=== PATIENT | male | born 1970 | race Caucasian/White ===

== ENCOUNTER 2017-09-15 12:19 | Emergency (ER) | payer SELFPAY ==
--- NOTE | 2017-09-15 12:22 | EDM.PDOC ---
ED HPI GENERAL MEDICAL PROBLEM - General Stated Complaint: HBP Time Seen by Provider: 09/15/17 12:35 Source of Information: Reports: Patient History Limitations: Reports: No Limitations - History of Present Illness INITIAL COMMENTS - FREE TEXT/NARRATIVE: History of present illness: []Patient was at a job physical and found to have high blood pressure and was told to come to the emergency room immediately. Patient has no symptoms of chest pain, shortness of breath, dizziness, blurry vision, back pain or headache. Patient had a heart attack in 2009 and had a stent placed. He is noncompliant with medication due to lack of insurance. Patient does not take a baby aspirin daily. He was supposed to also be on cholesterol medicines, metoprolol and Effient. Review of systems: As per history of present illness and below otherwise all systems reviewed and negative. Past medical history: As per history of present illness and as reviewed below otherwise noncontributory. Surgical history: As per history of present illness and as reviewed below otherwise noncontributory. Social history: No reported history of drug or alcohol abuse. Family history: As per history of present illness and as reviewed below otherwise noncontributory. Physical exam: General: Well developed, well nourished in NAD HEENT: Atraumatic, normocephalic, pupils reactive, negative for conjunctival pallor or scleral icterus, mucous membranes moist, throat clear, neck supple, nontender, trachea midline. Lungs: Clear to auscultation, breath sounds equal bilaterally, chest nontender. Heart: S1S2, regular, negative for clicks, rubs, or JVD. Abdomen: Soft, nondistended, nontender. Negative for masses or hepatosplenomegaly. Negative for costovertebral tenderness. Pelvis: Stable nontender. Genitourinary: Deferred. Rectal: Deferred. Extremities: Atraumatic, negative for cords or calf pain. Neurovascular unremarkable. Neuro: Awake, alert, oriented. Cranial nerves II through XII unremarkable. Cerebellum unremarkable. Motor and sensory unremarkable throughout. Exam nonfocal. Diagnostics: []9. Patient asymptomatic. Therapeutics: []Metoprolol clonidine given in the ED Impression: []Uncontrolled hypertension Plan: []Metoprolol prescription called in, aspirin daily, Definitive disposition and diagnosis as appropriate pending reevaluation and review of above. - Related Data Allergies Allergy/AdvReac Type Severity Reaction Status Date / Time No Known Allergies Allergy Verified 09/15/17 12:30 Home Meds: Home Meds Metoprolol Tartrate [Lopressor] 25 mg PO Q12HR #30 tab 09/15/17 [Rx] ED ROS GENERAL - Review of Systems Review Of Systems: See Below (History of present illness:) ED EXAM, GENERAL - Physical Exam Exam: See Below (History of present illness:) Course - Vital Signs Last Recorded V/S: Last Vital Signs Temp 98.0 F 09/15/17 12:38 Pulse 78 09/15/17 14:00 Resp 16 09/15/17 12:38 BP 173/119 H 09/15/17 14:16 Pulse Ox 97 09/15/17 12:38 - Orders/Labs/Meds Meds: Medications Discontinued Medications Generic Name Dose Route Start Last Admin Trade Name Velq PRN Reason Stop Dose Admin Clonidine HCl 0.2 mg 09/15/17 14:08 09/15/17 14:16 Catapres PO 09/15/17 14:09 0.2 mg ONETIME ONE Administration Metoprolol Tartrate 25 mg 09/15/17 12:45 09/15/17 12:52 Lopressor PO 09/15/17 12:46 25 mg ONETIME ONE Administration Metoprolol Tartrate 25 mg 09/15/17 13:24 09/15/17 13:30 Lopressor PO 09/15/17 13:25 25 mg ONETIME ONE Administration Departure - Departure Time of Disposition: 15:03 Disposition: Home, Self-Care 01 Condition: Good Clinical Impression: Uncontrolled hypertension - Discharge Information Prescriptions: Metoprolol Tartrate [Lopressor] 25 mg PO Q12HR #30 tab Referrals: PCP,None [Primary Care Provider] - Additional Instructions: The following information is given to patients seen in the emergency department who are being discharged to home. This information is to outline your options for follow-up care. We provide all patients seen in our emergency department with a follow-up referral. The need for follow-up, as well as the timing and circumstances, are variable depending upon the specifics of your emergency department visit. If you don't have a primary care physician on staff, we will provide you with a referral. We always advise you to contact your personal physician following an emergency department visit to inform them of the circumstance of the visit and for follow-up with them and/or the need for any referrals to a consulting specialist. The emergency department will also refer you to a specialist when appropriate. This referral assures that you have the opportunity for follow-up care with a specialist. All of these measure are taken in an effort to provide you with optimal care, which includes your follow-up. Under all circumstances we always encourage you to contact your private physician who remains a resource for coordinating your care. When calling for follow-up care, please make the office aware that this follow-up is from your recent emergency room visit. If for any reason you are refused follow-up, please contact the [facility] Emergency Department at and asked to speak to the emergency department charge nurse. Take metoprolol as directed take one baby aspirin daily follow-up with primary care next available appointment. [facility] [address] [place] [id number]
[2017-09-15] MEDS ORDERED: Metoprolol Tartrate 25 MG Tab PO ONE ×2 (12:45→13:24)
[2017-09-15] MEDS ORDERED: cloNIDine 0.1 MG Tab PO ONE (14:08)
== END 2017-09-15 15:42 | disposition home or self-care (01) ==
LOC: MW.ED 12:19
DX: I10 Essential (primary) hypertension (principal)
CPT/HCPCS: 99283; A9270; 99282

== ENCOUNTER 2017-11-17 03:46 | Emergency (ER) | payer SELFPAY ==
[2017-11-17] MEDS ORDERED: Ketorolac 60 MG/2 ML SDV IM ONE (03:55)
--- NOTE | 2017-11-17 03:56 | EDM.PDOC ---
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 Past medical history: As per history of present illness and as reviewed below otherwise noncontributory. Surgical history: As per history of present illness and as reviewed below otherwise noncontributory. Social history: No reported history of drug or alcohol abuse. Family history: As per history of present illness and as reviewed below otherwise noncontributory. Physical exam: HEENT: Atraumatic, normocephalic, pupils reactive, negative for conjunctival pallor or scleral icterus, mucous membranes moist, throat clear, neck supple, nontender, trachea midline. Lungs: Clear to auscultation, breath sounds equal bilaterally, chest nontender. Heart: S1S2, regular, negative for clicks, rubs, or JVD. Abdomen: Soft, nondistended, nontender. Negative for masses or hepatosplenomegaly. Negative for costovertebral tenderness. Pelvis: Stable nontender. Genitourinary: Deferred. Rectal: Deferred. Extremities: Atraumatic, negative for cords or calf pain. Neurovascular unremarkable. Neuro: Awake, alert, oriented. Cranial nerves II through XII unremarkable. Cerebellum unremarkable. Motor and sensory unremarkable throughout. Exam nonfocal. Musculoskeletal as per history of present illness otherwise unremarkable Diagnostics: [Lumbar spine ] Therapeutics: [Toradol 60 IM 1 L bolus normal saline Morphine 2 mg IV Valium 5 mg IV ] Cataflam Flexeril Ice Follow-up primary care Patient has been out of metoprolol for a couple of weeks I did provide a prescription for his regular dosing for 30 days Impression: [Low back pain]/paraspinous muscle spasm -pain improved 2 out of 10 Patient has newspaper delivery driver post medication Definitive disposition and diagnosis as appropriate pending reevaluation and review of above. back Pain Score (Numeric/FACES): 9 - Related Data Allergies Allergy/AdvReac Type Severity Reaction Status Date / Time Penicillins Allergy Hives Verified 11/17/17 03:58 Home Meds: Home Meds Metoprolol Tartrate [Lopressor] 25 mg PO Q12HR #30 tab 09/15/17 [Rx] Past Medical History Cardiovascular History: Reports: Hypertension, [place] - Past Surgical History Cardiovascular Surgical History: Reports: Coronary Artery Stent Social & Family History - Family History Family Medical History: Noncontributory - Caffeine Use Caffeine Use: Reports: Coffee ED ROS GENERAL - Review of Systems Review Of Systems: See Below ED EXAM, GENERAL - Physical Exam Exam: See Below Course - Vital Signs Last Recorded V/S: Last Vital Signs Temp 96.6 F 11/17/17 03:56 Pulse 74 11/17/17 05:06 Resp 18 11/17/17 05:06 BP 163/116 H 11/17/17 05:06 Pulse Ox 97 11/17/17 05:06 - Orders/Labs/Meds Orders: Active Orders 24 hr Category Date Time Status Lumbar Spine 2 or 3V [CR] Stat Exams 11/17/17 03:55 Taken Meds: Medications Discontinued Medications Generic Name Dose Route Start Last Admin Trade Name Freq PRN Reason Stop Dose Admin Diazepam 5 mg 11/17/17 05:01 11/17/17 05:07 Valium IV 11/17/17 05:02 5 mg ONETIME ONE Administration Sodium Chloride 1,000 mls @ 999 mls/hr 11/17/17 04:08 11/17/17 04:20 Normal Saline IV 11/17/17 05:08 999 mls/hr STAT ONE Administration Ketorolac Tromethamine 60 mg 11/17/17 03:55 11/17/17 04:00 Toradol IM 11/17/17 03:56 60 mg ONETIME ONE Administration Morphine Sulfate 2 mg 11/17/17 04:23 11/17/17 04:27 Morphine IVPUSH 11/17/17 04:24 2 mg ONETIME ONE Administration Departure - Departure Time of Disposition: 05:27 Disposition: Home, Self-Care 01 Condition: Good Clinical Impression: Lumbar paraspinal muscle spasm - Discharge Information Referrals: PCP,None [Primary Care Provider] - Forms: ED Department Discharge Additional Instructions: Medication as prescribed Ice 20 minute intervals 3 times daily as needed Return if symptoms persist or worsen Follow-up with primary care in 2 weeks sooner as needed [facility] [address] [place] [id number] The following information is given to patients seen in the emergency department who are being discharged to home. This information is to outline your options for follow-up care. We provide all patients seen in our emergency department with a follow-up referral. The need for follow-up, as well as the timing and circumstances, are variable depending upon the specifics of your emergency department visit. If you don't have a primary care physician on staff, we will provide you with a referral. We always advise you to contact your personal physician following an emergency department visit to inform them of the circumstance of the visit and for follow-up with them and/or the need for any referrals to a consulting specialist. The emergency department will also refer you to a specialist when appropriate. This referral assures that you have the opportunity for follow-up care with a specialist. All of these measure are taken in an effort to provide you with optimal care, which includes your follow-up. Under all circumstances we always encourage you to contact your private physician who remains a resource for coordinating your care. When calling for follow-up care, please make the office aware that this follow-up is from your recent emergency room visit. If for any reason you are refused follow-up, please contact the [facility] emergency department at and asked to speak to the emergency department charge nurse. - My Orders Last 24 Hours: My Active Orders 11/17/17 03:55 Lumbar Spine 2 or 3V [CR] Stat - Assessment/Plan Last 24 Hours: My Active Orders 11/17/17 03:55 Lumbar Spine 2 or 3V [CR] Stat
[2017-11-17] MEDS ORDERED: Sodium Chloride 0.9% 1,000 ML IV ONE (04:08)
[2017-11-17] MEDS ORDERED: Morphine 2 MG/ML Syringe IVPUSH ONE (04:23)
[2017-11-17] MEDS ORDERED: Diazepam 5 MG/ML 10 ML Vial MDV IV ONE (05:01)
[2017-11-17] MEDS ORDERED: Metoprolol Tartrate 5 MG/5 ML SDV IVPUSH STA (05:28)
--- NOTE | 2017-11-17 13:38 | CR ---
EXAM DATE: 11/17/17 PATIENT'S AGE: 47 Patient: MARCIO ROONEY Facility: [place], [place] Site . Site : 1970 Study: XRay Spine Lumbar [id number] 4:18:56 AM Ordering Physician: Doctor Dominguez Final Report: INDICATION: Low back pain TECHNIQUE: Lumbar spine 3 view. COMPARISON: None available FINDINGS: A mildly exaggerated lumbar lordosis. Preserved vertebral body heights and disc spaces. Anatomically aligned facets. Apparent mild hypertrophic degenerative changes in the lower lumbar facets. Small anterior osteophytes at few levels. IMPRESSION: Mild degenerative changes. Dictated by Gutierrez Camacho MD @ 11/17/2017 4:51:32 AM Dictated by: Gutierrez Camacho MD @ 11/17/2017 04:51:42 (Electronic Signature) Report Signed by Proxy. [email or web address]
== END 2017-11-17 06:20 | disposition home or self-care (01) ==
LOC: MW.ED 03:46
DX: M62.830 Muscle spasm of back (principal); I10 Essential (primary) hypertension; I25.2 Old myocardial infarction; Z88.0 Allergy status to penicillin; Z95.5 Presence of coronary angioplasty implant and graft
CPT/HCPCS: 72100; 96361; 96372; 96374; 96375; 99283; A9270; J1885; J2270; J7040

== ENCOUNTER 2018-02-21 13:31 | Emergency (ER) | payer SELFPAY ==
[2018-02-21] MEDS ORDERED: Sodium Chloride 0.9% 10 ML Syringe FLUSH PRN (13:40)
[2018-02-21] MEDS ORDERED: Aspirin 81 MG Tab.Chew PO ONE (13:40)
[2018-02-21] MEDS ORDERED: Sodium Chloride 0.9% 2.5 ML Syringe FLUSH PRN (13:40)
--- NOTE | 2018-02-21 14:19 | EDM.PDOC ---
ED HPI GENERAL MEDICAL PROBLEM - General Chief Complaint: Chest Pain Stated Complaint: INFECTION Time Seen by Provider: 02/21/18 13:32 Source of Information: Reports: Patient History Limitations: Reports: No Limitations - History of Present Illness INITIAL COMMENTS - FREE TEXT/NARRATIVE: History of present illness: []Patient states that he has had lower chest and upper abdominal pain for 3 days straight. He has been coughing and sleeping excessively for the last 3 days. He states he's been having sweats and his cough is nonproductive. Patient denies any vomiting, diarrhea, abdominal pain or back pain. Review of systems: As per history of present illness and below otherwise all systems reviewed and negative. Past medical history: As per history of present illness and as reviewed below otherwise noncontributory. Surgical history: As per history of present illness and as reviewed below otherwise noncontributory. Social history: No reported history of drug or alcohol abuse. Family history: As per history of present illness and as reviewed below otherwise noncontributory. Physical exam: General: Well developed, well nourished in NAD HEENT: Atraumatic, normocephalic, pupils reactive, negative for conjunctival pallor or scleral icterus, mucous membranes moist, throat clear, neck supple, nontender, trachea midline. Lungs: Clear to auscultation, breath sounds equal bilaterally, chest nontender. No rhonchi or wheezing Heart: S1S2, regular, negative for clicks, rubs, or JVD. Abdomen: Soft, nondistended, nontender. Negative for masses or hepatosplenomegaly. Negative for costovertebral tenderness. Pelvis: Stable nontender. Genitourinary: Deferred. Rectal: Deferred. Extremities: Atraumatic, negative for cords or calf pain. Neurovascular unremarkable. Neuro: Awake, alert, oriented. Cranial nerves II through XII unremarkable. Cerebellum unremarkable. Motor and sensory unremarkable throughout. Exam nonfocal. Skin:warm and dry Diagnostics: EKG, CBC, chemistry, troponin, chest x-ray, blood cultures Therapeutics: IV fluids, aspirin, nitroglycerin ED Course: Unremarkable Impression: Chest pain, bronchitis Prescriptions: Z-Kavon Plan: Follow-up with PMD Definitive disposition and diagnosis as appropriate pending reevaluation and review of above. chest Pain Score (Numeric/FACES): 5 - Related Data Allergies Allergy/AdvReac Type Severity Reaction Status Date / Time Penicillins Allergy Hives Verified 02/21/18 13:56 Home Meds: Home Meds Metoprolol Tartrate [Lopressor] 25 mg PO Q12HR #30 tab 09/15/17 [Rx] Azithromycin [Zithromax] 250 mg PO DAILY #6 tab 02/21/18 [Rx] Past Medical History HEENT History: Reports: None Cardiovascular History: Reports: Hypertension, [place] Respiratory History: Reports: None Gastrointestinal History: Reports: None Genitourinary History: Reports: None Musculoskeletal History: Reports: Back Pain, Chronic Neurological History: Reports: None Psychiatric History: Reports: None Endocrine/Metabolic History: Reports: None Hematologic History: Reports: None Immunologic History: Reports: None Oncologic (Cancer) History: Reports: None Dermatologic History: Reports: None - Infectious Disease History Infectious Disease History: Reports: Chicken Pox - Past Surgical History Head Surgeries/Procedures: Reports: None HEENT Surgical History: Reports: None Cardiovascular Surgical History: Reports: Coronary Artery Stent Respiratory Surgical History: Reports: None GI Surgical History: Reports: None Male Surgical History: Reports: None Endocrine Surgical History: Reports: None Neurological Surgical History: Reports: None Musculoskeletal Surgical History: Reports: None Oncologic Surgical History: Reports: None Dermatological Surgical History: Reports: None Social & Family History - Family History Family Medical History: Noncontributory - Tobacco Use Smoking Status *Q: Current Every Day Smoker Years of Tobacco use: 15 Packs/Tins Daily: 0.5 - Caffeine Use Caffeine Use: Reports: Coffee - Recreational Drug Use Recreational Drug Use: No ED ROS GENERAL - Review of Systems Review Of Systems: ROS reveals no pertinent complaints other than HPI. ED EXAM, GENERAL - Physical Exam Exam: See Below (See history of present illness) Course - Vital Signs Last Recorded V/S: Last Vital Signs Temp 95.9 F 02/21/18 13:35 Pulse 67 02/21/18 15:35 Resp 10 L 02/21/18 15:35 BP 160/95 H 02/21/18 15:35 Pulse Ox 96 02/21/18 15:35 - Orders/Labs/Meds Orders: Active Orders 24 hr Category Date Time Status EKG Documentation Completion [RC] STAT Care 02/21/18 13:40 Active CULTURE BLOOD [BC] Stat Lab 02/21/18 13:55 Ordered CULTURE BLOOD [BC] Stat Lab 02/21/18 14:08 Results Sodium Chloride 0.9% [Saline Flush] Med 02/21/18 13:40 Active 10 ml FLUSH ASDIRECTED PRN Sodium Chloride 0.9% [Saline Flush] Med 02/21/18 13:40 Active 2.5 ml FLUSH ASDIRECTED PRN Blood Culture x2 Reflex Set [OM.PC] Stat Oth 02/21/18 13:55 Ordered Saline Lock Insert [OM.PC] Stat Oth 02/21/18 13:40 Ordered Medication Orders Sodium Chloride (Saline Flush) 10 ml FLUSH ASDIRECTED PRN PRN Reason: Keep Vein Open Last Admin: 02/21/18 14:16 Dose: 10 ml Sodium Chloride (Saline Flush) 2.5 ml FLUSH ASDIRECTED PRN PRN Reason: Keep Vein Open Last Admin: 02/21/18 14:17 Dose: 2.5 ml Labs: Laboratory Tests 02/21/18 02/21/18 Range/Units 14:08 14:08 WBC 5.91 (4.0-11.0) K/uL RBC 4.58 (4.50-5.90) M/uL Hgb 14.9 (13.0-17.0) g/dL Hct 42.8 (38.0-50.0) % MCV 93.4 (80.0-98.0) fL MCH 32.5 H (27.0-32.0) pg MCHC 34.8 (31.0-37.0) g/dL RDW Std Deviation 46.0 (28.0-62.0) fl RDW Coeff of Asad 13 (11.0-15.0) % Plt Count 209 (150-400) K/uL MPV 10.00 (7.40-12.00) fL Neut % (Auto) 65.1 (48.0-80.0) % Lymph % (Auto) 25.2 (16.0-40.0) % [place] % (Auto) 8.0 (0.0-15.0) % Eos % (Auto) 1.5 (0.0-7.0) % Baso % (Auto) 0.2 (0.0-1.5) % Neut # (Auto) 3.9 (1.4-5.7) K/uL Lymph # (Auto) 1.5 (0.6-2.4) K/uL [place] # (Auto) 0.5 (0.0-0.8) K/uL Eos # (Auto) 0.1 (0.0-0.7) K/uL Baso # (Auto) 0.0 (0.0-0.1) K/uL Nucleated RBC % 0.0 /100WBC Nucleated RBCs # 0 K/uL Sodium 139 (136-148) mmol/L Potassium 3.6 (3.5-5.1) mmol/L Chloride 104 (98-107) mmol/L Carbon Dioxide 23.6 (21.0-32.0) mmol/L BUN 13 (7.0-18.0) mg/dL Creatinine 1.1 (0.8-1.3) mg/dL Est Cr Clr Drug Dosing 81.18 mL/min Estimated GFR (MDRD) > 60.0 ml/min Glucose 125 H (74-106) mg/dL Calcium 8.7 (8.5-10.1) mg/dL Total Bilirubin 0.3 (0.2-1.0) mg/dL AST 16 (15-37) IU/L ALT 33 (14-63) IU/L Alkaline Phosphatase 37 L (46-116) U/L Troponin I < 0.050 (0.000-0.056) ng/mL Total Protein 6.7 (6.4-8.2) g/dL Albumin 3.2 L (3.4-5.0) g/dL Globulin 3.5 (2.0-3.5) g/dL Albumin/Globulin Ratio 0.9 L (1.3-2.8) Meds: Medications Generic Name Dose Route Start Last Admin Trade Name Freq PRN Reason Stop Dose Admin Sodium Chloride 10 ml 02/21/18 13:40 02/21/18 14:16 Saline Flush FLUSH 10 ml ASDIRECTED PRN Administration Keep Vein Open Sodium Chloride 2.5 ml 02/21/18 13:40 02/21/18 14:17 Saline Flush FLUSH 2.5 ml ASDIRECTED PRN Administration Keep Vein Open Discontinued Medications Generic Name Dose Route Start Last Admin Trade Name Freq PRN Reason Stop Dose Admin Aspirin 324 mg 02/21/18 13:40 02/21/18 14:16 Aspirin PO 02/21/18 13:41 324 mg ONETIME ONE Administration Nitroglycerin 0.4 mg 02/21/18 13:40 02/21/18 14:35 Nitrostat SL 0.4 mg Q5M PRN Administration Chest Pain Departure - Departure Time of Disposition: 16:04 Disposition: Home, Self-Care 01 Condition: Good Clinical Impression: Acute bronchitis Qualifiers: Bronchitis organism: unspecified organism Qualified Code(s): J20.9 - Acute bronchitis, unspecified Prescriptions: Azithromycin [Zithromax] 250 mg PO DAILY #6 tab Referrals: PCP,Unknown [Primary Care Provider] - Forms: ED Department Discharge Additional Instructions: The following information is given to patients seen in the emergency department who are being discharged to home. This information is to outline your options for follow-up care. We provide all patients seen in our emergency department with a follow-up referral. The need for follow-up, as well as the timing and circumstances, are variable depending upon the specifics of your emergency department visit. If you don't have a primary care physician on staff, we will provide you with a referral. We always advise you to contact your personal physician following an emergency department visit to inform them of the circumstance of the visit and for follow-up with them and/or the need for any referrals to a consulting specialist. The emergency department will also refer you to a specialist when appropriate. This referral assures that you have the opportunity for follow-up care with a specialist. All of these measure are taken in an effort to provide you with optimal care, which includes your follow-up. Under all circumstances we always encourage you to contact your private physician who remains a resource for coordinating your care. When calling for follow-up care, please make the office aware that this follow-up is from your recent emergency room visit. If for any reason you are refused follow-up, please contact the [facility] Emergency Department at and asked to speak to the emergency department charge nurse. Levar as directed follow-up with primary care increase fluids [facility] [place] [phone] - My Orders Last 24 Hours: My Active Orders 02/21/18 13:40 EKG Documentation Completion [RC] STAT Sodium Chloride 0.9% [Saline Flush] 10 ml FLUSH ASDIRECTED PRN Sodium Chloride 0.9% [Saline Flush] 2.5 ml FLUSH ASDIRECTED PRN Saline Lock Insert [OM.PC] Stat 02/21/18 13:55 CULTURE BLOOD [BC] Stat Blood Culture x2 Reflex Set [OM.PC] Stat 02/21/18 14:08 CULTURE BLOOD [BC] Stat - Assessment/Plan Last 24 Hours: My Active Orders 02/21/18 13:40 EKG Documentation Completion [RC] STAT Sodium Chloride 0.9% [Saline Flush] 10 ml FLUSH ASDIRECTED PRN Sodium Chloride 0.9% [Saline Flush] 2.5 ml FLUSH ASDIRECTED PRN Saline Lock Insert [OM.PC] Stat 02/21/18 13:55 CULTURE BLOOD [BC] Stat Blood Culture x2 Reflex Set [OM.PC] Stat 02/21/18 14:08 CULTURE BLOOD [BC] Stat
[2018-02-21] MEDS: Nitroglycerin 0.4 MG Tab.SL SL PRN ×3 (14:25→14:35)
[2018-02-21 15:27] LABS: CHLORIDE,CL 104 mmol/L (98-107); SODIUM,NA 139 mmol/L (136-148)
--- NOTE | 2018-02-21 15:57 | CR ---
EXAMINATION: Two-view chest (PA and Lateral views). HISTORY: Shortness of breath. FINDINGS: The trachea is midline. The cardiomediastinal silhouette is within normal limits. No pulmonary infilt rates, effusions or pneumothorax. There is likely a tiny calcified granuloma within the left lung bas e, versus a nipple shadow. Osseous structures appear unremarkable. IMPRESSION: No acute cardiopulmonary process.
== END 2018-02-21 16:56 | disposition home or self-care (01) ==
LOC: MW.ED 13:31
DX: J20.9 Acute bronchitis, unspecified (principal); I10 Essential (primary) hypertension; F17.210 Nicotine dependence, cigarettes, uncomplicated; Z88.0 Allergy status to penicillin
CPT/HCPCS: 36415; 71046; 80053; 84484; 85025; 87040; 93005; 99285; A9270